=== PATIENT | male | born 2000 | race African-American/Black ===

== ENCOUNTER 2023-02-02 02:32 | Emergency (ER) | payer OTHER ==
[~2023-02-02] VITALS: Ht 175.3 cm; Wt 168.0 kg
[2023-02-02] MEDS ORDERED: ALBU8.5H INH (02:53)
[2023-02-02] MEDS ORDERED: QVAR40AE12 INH (02:53)
[2023-02-02 06:04] VITALS: BP 140/62
[2023-02-02] MEDS ORDERED: ACETAMINOPHEN 325 MG TAB PO ONE (06:10)
== END 2023-02-02 06:29 | disposition home or self-care (01) ==
LOC: EDBD 02:32 → M ED 02:32
DX: S06.0X0A Concussion without loss of consciousness, initial encounter (principal); S00.01XA Abrasion of scalp, initial encounter; Y04.8XXA Assault by other bodily force, initial encounter; Y92.149 Unspecified place in prison as the place of occurrence of the external cause; Y93.89 Activity, other specified; Y99.8 Other external cause status